=== PATIENT | female | born 1975 | race Caucasian/White ===

== ENCOUNTER 2018-12-26 23:06 | Emergency (ER) | payer BC ==
[2018-12-27 00:35] LABS: Absolute Lymphocytes (CBC) 1.4 K/uL (0.7-4.9); Absolute Monocytes 0.7 K/uL (0.1-1.3); Absolute Neutrophil 3.8 K/uL (1.8-8.0); Basophils % 0.5 % (0-1.3); Hematocrit 45.1 % (36.0-45.0); Lymphocytes % 23.4 % (15.3-44.8); MPV 7.9 fL (7.6-11.3); Monocytes % 11.6 % (3.3-12.3); RBC Red Blood Cell Count 4.86 M/uL (3.86-4.86)
[2018-12-27 00:40] LABS: Protime INR 1.04
[2018-12-27 01:00] LABS: ALT/SGPT 54 U/L (12-78); AST/SGOT 70 U/L (15-37); Albumin 3.6 g/dL (3.4-5.0); Alkaline Phosphatase 74 U/L (45-117); BUN Blood Urea Nitrogen 6 mg/dL (7-18); Bicarbonate 26 mmol/L (21-32); Bilirubin Direct 0.1 mg/dL (0-0.2); Bilirubin Total 0.6 mg/dL (0.2-1.0); Glucose Level 109 mg/dL (74-106); Magnesium 1.9 mg/dL (1.8-2.4); NT PRO-BNP 127 pg/mL (<125); Potassium 3.9 mmol/L (3.5-5.1); Protein, Total 7.4 g/dL (6.4-8.2); Sodium Level 139 mmol/L (136-145); Troponin (Emerg Dept Use Only) < 0.02 ng/mL (0.0-0.045)
--- NOTE | 2018-12-27 04:13 | ER ---
Nurse's Notes [facility] Name: Kayy Munoz Age: 43 yrs Sex: Female : 1975 Arrival Date: 12/26/2018 Time: 23:09 Bed 8 Private MD: Diagnosis: Chest pain, unspecified Presentation: 12/26 23:23 Presenting complaint: Patient states: went to Urgent Care today for sore-throat and ear bb ache but her blood pressure was too high and they would not treat her and told her to come to the ED she wasn't going to come but then developed chest pain and light-headedness about an hour ago chest pain does not radiate and is constant approx 3/10. Transition of care: patient was not received from another setting of care. Onset of symptoms was December 26, 2018. Risk Assessment: Do you want to hurt yourself or someone else? Patient reports no desire to harm self or others. Initial Sepsis Screen: Does the patient meet any 2 criteria? No. Patient's initial sepsis screen is negative. Does the patient have a suspected source of infection? No. Patient's initial sepsis screen is negative. Care prior to arrival: None. 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 - Social history:: Smoking status: Patient/guardian denies using tobacco. - Ebola Screening: : No symptoms or risks identified at this time. Screenin/15 00:36 Abuse screen: Denies threats or abuse. Denies injuries from another. Nutritional ak1 screening: No deficits noted. Tuberculosis screening: No symptoms or risk factors identified. Fall Risk None identified. Assessment: 00:35 General: Appears in no apparent distress. Behavior is calm, cooperative. Pain: Pain ak1 does not radiate. Pain began. Neuro: No deficits noted. Cardiovascular: Reports chest pain. Respiratory: No deficits noted. GI: No signs and/or symptoms were reported involving the gastrointestinal system. : No signs and/or symptoms were reported regarding the genitourinary system. EENT: Reports pain in throat. Derm: Musculoskeletal: No signs and/or symptoms reported regarding the musculoskeletal system. 02:43 Reassessment: Patient appears in no apparent distress at this time. No changes from ak1 previously documented assessment. Patient and/or family updated on plan of care and expected duration. Pain level reassessed. Patient is alert, oriented x 3, equal unlabored respirations, skin warm/dry/pink. Patient states feeling better. Patient states symptoms have improved. 04:26 Reassessment: Patient appears in no apparent distress at this time. No changes from ak1 previously documented assessment. Patient and/or family updated on plan of care and expected duration. Pain level reassessed. Patient is alert, oriented x 3, equal unlabored respirations, skin warm/dry/pink. Patient states feeling better. Patient states symptoms have improved. Vital Signs: 12/26 23:27 BP 178 / 118; Pulse 97; Resp 16 S; Temp 98.7(O); Pulse Ox 96% on R/A; Weight 106.59 kg bb (R); Height 5 ft. 6 in. (167.64 cm) (R); Pain 01/19; 12/27 00:38 BP 151 / 91; Pulse 90; Resp 16; Pulse Ox 97% on R/A; ak1 01:46 BP 144 / 90; Pulse 80; Resp 16; Pulse Ox 94% on R/A; ak1 02:00 BP 141 / 90; Pulse 75; Resp 16; Pulse Ox 94% on R/A; ak1 02:30 BP 152 / 93; Pulse 76; Resp 16; Pulse Ox 94% on R/A; ak1 03:00 BP 153 / 90; Pulse 79; Resp 16; Pulse Ox 96% on R/A; ak1 03:40 BP 149 / 98; Pulse 78; Resp 16; Pulse Ox 96% on R/A; ak1 04:25 BP 147 / 83; Pulse 73; Resp 16; Temp 98.8; Pulse Ox 96% on R/A; ak1 12/26 23:27 Body Mass Index 37.93 (106.59 kg, 167.64 cm) ED Course: 12/26 23:09 Patient arrived in ED. es 23:18 Corby, Brady, MD is Attending Physician. tw4 23:25 Triage completed. bb 23:27 Arm band placed on left wrist. Patient placed in waiting room, Patient notified of wait bb time. EKG completed in triage. Results shown to MD. 23:39 XRAY Chest (1 view) In Process Unspecified. EDUT 12/27 00:25 Inserted saline lock: 20 gauge in right antecubital area, using aseptic technique. ak1 Blood collected. Patient maintains SpO2 saturation greater than 95% on room air. 00:34 Shereen Ramirez, RN is Primary Nurse. ak1 00:36 Patient has correct armband on for positive identification. Bed in low position. Call ak1 light in reach. Side rails up X 1. auto design checker on. Pulse ox on. NIBP on. 02:42 Repeat lab(s) drawn. by ar, sent to lab. ak1 04:12 Grady Jain MD is Referral Physician. tw4 04:25 No provider procedures requiring assistance completed. IV discontinued, intact, ak1 bleeding controlled, No redness/swelling at site. Pressure dressing applied. Administered Medications: No medications were administered Outcome: 04:11 Discharge ordered by . tw4 04:25 Condition: stable ak1 04:31 Discharged to home ambulatory. tl1 04:31 Condition: stable 04:31 Discharge instructions given to patient, Instructed on discharge instructions, follow up and referral plans. Demonstrated understanding of instructions, follow-up care. 04:32 Patient left the ED. tl1 Signatures: Dispatcher [employer] [facility] Shelley Barker Brenda, RN RN bb Lasagna, Tonya, RN RN tl1 Shereen Ramirez, RN RN ak1 Brady Tavarez MD MD tw4
--- NOTE | 2018-12-27 04:14 | EDPHYS ---
Physician Documentation [facility] Name: Kayy Munoz Age: 43 yrs Sex: Female : 1975 Arrival Date: 12/26/2018 Time: 23:09 Bed 8 Private MD: ED Physician Brady Tavarez HPI: 12/27 01:21 This 43 yrs old Female presents to ER via Ambulatory with complaints of Chest tw4 Pain. 01:21 The patient or guardian reports chest pain that is located primarily in the substernal tw4 area. Onset: today. The pain does not radiate. Associated signs and symptoms: The patient has no apparent associated signs or symptoms. The chest pain is described as aching, dull. Duration: The patient or guardian reports a single episode. Severity of pain: At its worst the pain was moderate in the emergency department the pain is unchanged. 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 - Social history:: Smoking status: Patient/guardian denies using tobacco. - Ebola Screening: : No symptoms or risks identified at this time. ROS: 12/27 01:21 Constitutional: Negative for fever, chills, and weight loss, Eyes: Negative for injury, tw4 pain, redness, and discharge. Respiratory: Negative for shortness of breath, cough, wheezing, and pleuritic chest pain, Abdomen/GI: Negative for abdominal pain, nausea, vomiting, diarrhea, and constipation, Back: Negative for injury and pain, MS/Extremity: Negative for injury and deformity, Skin: Negative for injury, rash, and discoloration, Neuro: Negative for headache, weakness, numbness, tingling, and seizure. Cardiovascular: Positive for chest pain, Negative for edema, orthopnea, palpitations. Exam: 01:21 Constitutional: This is a well developed, well nourished patient who is awake, alert, tw4 and in no acute distress. Head/Face: Normocephalic, atraumatic. Chest/axilla: Normal chest wall appearance and motion. Nontender with no deformity. No lesions are appreciated. Cardiovascular: Regular rate and rhythm with a normal S1 and S2. No gallops, murmurs, or rubs. Normal PMI, no JVD. No pulse deficits. Respiratory: Lungs have equal breath sounds bilaterally, clear to auscultation and percussion. No rales, rhonchi or wheezes noted. No increased work of breathing, no retractions or nasal flaring. Abdomen/GI: Soft, non-tender, with normal bowel sounds. No distension or tympany. No guarding or rebound. No evidence of tenderness throughout. Back: No spinal tenderness. No costovertebral tenderness. Full range of motion. MS/ Extremity: Pulses equal, no cyanosis. Neurovascular intact. Full, normal range of motion. Neuro: Awake and alert, GCS 15, oriented to person, place, time, and situation. Cranial nerves II-XII grossly intact. Motor strength 5/5 in all extremities. Sensory grossly intact. Cerebellar exam normal. Normal gait. Vital Signs: 12/26 23:27 BP 178 / 118; Pulse 97; Resp 16 S; Temp 98.7(O); Pulse Ox 96% on R/A; Weight 106.59 kg bb (R); Height 5 ft. 6 in. (167.64 cm) (R); Pain 01/19; 12/27 00:38 BP 151 / 91; Pulse 90; Resp 16; Pulse Ox 97% on R/A; ak1 01:46 BP 144 / 90; Pulse 80; Resp 16; Pulse Ox 94% on R/A; ak1 02:00 BP 141 / 90; Pulse 75; Resp 16; Pulse Ox 94% on R/A; ak1 02:30 BP 152 / 93; Pulse 76; Resp 16; Pulse Ox 94% on R/A; ak1 03:00 BP 153 / 90; Pulse 79; Resp 16; Pulse Ox 96% on R/A; ak1 03:40 BP 149 / 98; Pulse 78; Resp 16; Pulse Ox 96% on R/A; ak1 04:25 BP 147 / 83; Pulse 73; Resp 16; Temp 98.8; Pulse Ox 96% on R/A; ak1 12/26 23:27 Body Mass Index 37.93 (106.59 kg, 167.64 cm) bb MDM: 12/26 23:43 Patient medically screened. 12/27 04:08 Differential diagnosis: acute myocardial infarction, acute pericarditis, herpes zoster, tw4 pulmonary embolus, stable angina. HEART Score: History: Slightly Suspicious (0), ECG: Non specific repolarization disturbance / LBTB / PM (1), Age: < or = 45 years (0), Risk Factors: 1 or 2 risk factors (1), [Hypertension] Troponin: Total Score =. The patient was given aspirin in the Emergency Department. Data reviewed: vital signs, nurses notes. Test interpretation: by ED physician or midlevel provider: ECG, plain radiologic studies. Counseling: I had a detailed discussion with the patient and/or guardian regarding: the historical points, exam findings, and any diagnostic results supporting the discharge/admit diagnosis, lab results, radiology results. Special discussion: Based on the patient's history, exam, and Dx evaluation, there is no indication for emergent intervention or inpatient Tx. It is understood by the patient/guardian that if the Sx's persist or worsen they need to return immediately for re-evaluation. I discussed with the patient/guardian in detail that at this point there is no indication for admission to the hospital. It is understood, however, that if the symptoms persist or worsen the patient needs to return immediately for re-evaluation. 12/26 23:18 Order name: Basic Metabolic Panel 12/26 23:18 Order name: CBC with Diff 12/26 23:18 Order name: LFT's 12/26 23:18 Order name: Magnesium 12/26 23:18 Order name: NT PRO-BNP 12/26 23:18 Order name: PT-INR 12/26 23:18 Order name: Troponin (emerg Dept Use Only) 12/26 23:18 Order name: XRAY Chest (1 view) 12/26 23:18 Order name: EKG; Complete Time: 23:19 12/26 23:18 Order name: Cardiac monitoring; Complete Time: 00:37 12/26 23:18 Order name: EKG - Nurse/Tech; Complete Time: 00:37 12/27 00:37 Order name: Strep ak1 12/27 01:16 Order name: Throat Culture [facility] 12/27 02:34 Order name: Troponin (emerg Dept Use Only); Complete Time: 04:07 tw4 12/26 23:18 Order name: IV Saline Lock; Complete Time: 00:37 4 12/26 23:18 Order name: Labs collected and sent; Complete Time: 00:37 tw4 12/26 23:18 Order name: O2 Per Protocol; Complete Time: 00:37 4 12/26 23:18 Order name: O2 Sat Monitoring; Complete Time: 00:37 tw4 EC:07 Rate is 95 beats/min. Rhythm is regular. QRS [place] is Normal. [place] interval is normal. QRS tw4 interval is normal. No Q waves. T waves are Inverted in leads III, V3, V6. No ST changes noted. Clinical impression: NSR w/ Non-specific ST/T Changes. Interpreted by me. Reviewed by me. Administered Medications: No medications were administered Disposition: 12/27/18 04:11 Discharged to Home. Impression: Chest pain, unspecified. - Condition is Stable. - Discharge Instructions: Nonspecific Chest Pain, Pain Without a Known Cause, Aspirin and Your Heart. - Work release form, Medication Reconciliation Form, Thank You Letter, Antibiotic Education, Prescription Opioid Use form. - Follow up: Private Physician; When: Upon discharge from the Emergency Department; Reason: If symptoms return, Recheck today's complaints, Continuance of care. Follow up: Grady Jain MD; When: Upon discharge from the Emergency Department; Reason: If symptoms return, Recheck today's complaints, Continuance of care. - Problem is new. - Symptoms have improved. Signatures: Dispatcher [employer] [facility] Latosha Matute RN RN bb Sharmin Rios RN RN tl1 Brady Tavarez MD MD tw4 Corrections: (The following items were deleted from the chart) 04:12 04:11 12/27/2018 04:11 Discharged to Home. Impression: Chest pain, unspecified. tw4 Condition is Stable. Forms are Medication Reconciliation Form, Thank You Letter, Antibiotic Education, Prescription Opioid Use. Follow up: Private Physician; When: Upon discharge from the Emergency Department; Reason: If symptoms return, Recheck today's complaints, Continuance of care. Problem is new. Symptoms have improved. tw4 04:32 04:12 12/27/2018 04:11 Discharged to Home. Impression: Chest pain, unspecified. tl1 Condition is Stable. Discharge Instructions: Nonspecific Chest Pain, Pain Without a Known Cause, Aspirin and Your Heart. Forms are Medication Reconciliation Form, Thank You Letter, Antibiotic Education, Prescription Opioid Use. Follow up: Private Physician; When: Upon discharge from the Emergency Department; Reason: If symptoms return, Recheck today's complaints, Continuance of care. Follow up: Grady Jain; When: Upon discharge from the Emergency Department; Reason: If symptoms return, Recheck today's complaints, Continuance of care. Problem is new. Symptoms have improved. tw4
--- NOTE | 2018-12-27 07:45 | EKG ---
Test Date: 2018-12-26 Test Time: 23:15:28 Rn Telehealth: SURAJ MEASUREMENT RESULTS: Intervals: Rate: 95 AL: 140 QRSD: 76 QT: 366 QTc: 459 [place]: P: 52 AL: 140 QRS: 42 T: -20 INTERPRETIVE STATEMENTS: Normal sinus rhythm Nonspecific ST and T wave abnormality Abnormal ECG No previous ECG available for comparison Electronically Signed On 12-27-18 06:51:41 HATCH SUPERVISOR by Dalton Wood
--- NOTE | 2018-12-27 09:09 | RAD REPORT ---
EXAM DESCRIPTION: RAD - Chest Single View - 12/26/2018 11:39 pm CLINICAL HISTORY: Chest pain COMPARISON: None. TECHNIQUE: AP portable chest image was obtained 2332 hours . FINDINGS: Lungs are clear. Heart and vasculature are normal. No measurable pleural effusion and no p neumothorax. No acute bony abnormality seen. No acute aortic findings suspected. IMPRESSION: No acute cardiopulmonary process.
== END 2018-12-27 04:32 | disposition home or self-care (01) ==
LOC: ER 23:06
DX: R07.9 Chest pain, unspecified (principal); I10 Essential (primary) hypertension; Z88.2 Allergy status to sulfonamides
CPT/HCPCS: 36415; 71045; 80048; 80076; 83735; 83880; 84484; 85025; 85610; 87070; 87081; 93005; 99285